=== PATIENT | female | born 1955 | race Caucasian/White ===

== ENCOUNTER 2017-03-06 19:03 | Emergency (ER) | payer BC ==
[~2017-03-06] VITALS: Ht 165.1 cm; Wt 70.0 kg
[2017-03-06 19:06] VITALS: BP 176/98; PULSE 79; RESP 16; TEMP 98.2; O2SAT 100
[2017-03-06 22:54] VITALS: BP 159/80; PULSE 63; RESP 16; O2SAT 99
[2017-03-06 23:03] VITALS: O2SAT 100
[2017-03-06] MEDS ORDERED: LISI-515 PO (23:04)
[2017-03-06] MEDS ORDERED: PLAV75TA29 PO (23:04)
[2017-03-06] MEDS ORDERED: ROSU1TAB10 PO (23:04)
[2017-03-06] MEDS ORDERED: COQ-100C2 (23:05)
[2017-03-06] MEDS ORDERED: METO25TA3 PO (23:05)
[2017-03-06] MEDS ORDERED: ASPI1TAB69 PO (23:05)
[2017-03-06] MEDS ORDERED: SODIUM CHLORIDE 0.9% FLUSH 10 ML FLUSH IVF PRN (23:15)
[2017-03-06 23:28] LABS: AUTOMATED NEUTROPHIL # 6.5 TH/MM3 (1.8-7.7); BASOPHIL # 0.1 TH/MM3 (0-0.2); BASOPHIL % 0.7 % (0.0-2.0); EOSINOPHIL # 0.2 TH/MM3 (0-0.4); EOSINOPHIL % 1.6 % (0.0-4.0); HEMATOCRIT 45.3 % (35.0-46.0); HEMO FLAGS DIFF FINAL; LYMPH % 21.6 % (9.0-44.0); MEAN CELL VOLUME 90.2 FL (80.0-100.0); MEAN CORPUSCULAR HEMOGLOBIN 31.1 PG (27.0-34.0); MEAN CORPUSCULAR HGB CONC 34.5 % (32.0-36.0); MONO % 6.1 % (0.0-8.0); PLATELET COUNT 246 TH/MM3 (150-450); RED BLOOD COUNT 5.02 MIL/MM3 (4.00-5.30); RED CELL DISTRIBUTION WIDTH 13.4 % (11.6-17.2); WHITE BLOOD COUNT 9.3 TH/MM3 (4.0-11.0)
[2017-03-06 23:55] LABS: APTT (PATIENT) 26.8 SEC (24.3-30.1); INTERNATIONAL NORMALIZED RATIO 0.9 RATIO
[2017-03-06 23:59] LABS: BICARBONATE 29.8 MEQ/L (21.0-32.0)
--- NOTE | 2017-03-07 00:44 | PD ---
HPI . Rectal bleeding Chief Complaint: GI Complaint Time Seen by Provider: 23:00 Travel History International Travel<30 days: No Contact w/Intl Traveler<30days: No Traveled to known affect area: No History of Present Illness HPI Patient presents following a set of rectal bleeding. She states that she developed some abdominal pain at approximately 6:30. She went to the bathroom to have a bowel movement and passed a large amount of blood. She states that her abdominal pain did not improve with the bowel movement. She states that the abdominal pain was so severe that she felt like she was going to pass out. However, the pain is now mild. She is not sure what may have made the pain better. She denies any previous similar history. Patient reports an FL in August. She now takes aspirin and Plavix. [facility] Past Medical History Cardiovascular Problems: Yes (FL - external zoll life vest in place ) High Cholesterol: Yes Hypertension: Yes Tetanus Vaccination: > 5 Years Influenza Vaccination: No ?: Not : 4 Para: 4 Social History Alcohol Use: No Tobacco Use: No Substance Use: No Allergies-Medications (Allergen,Severity, Reaction): Coded Allergies: No Known Allergies (Unverified , 03/06/17) Reported Meds & Prescriptions Reported Meds & Active Scripts Active Reported Coq-10 (Coenzyme Q10 (Ubidecarenone)) 100 Mg Cap Aspirin 81 Mg Tabdr 81 Mg PO DAILY Metoprolol Tartrate 25 Mg Tab 25 Mg PO DAILY Lisinopril 20 Mg Tab 20 Mg PO DAILY Plavix (Clopidogrel Bisulfate) 75 Mg Tab 75 Mg PO DAILY Rosuvastatin (Rosuvastatin Calcium) 40 Mg Tab 40 Mg PO DAILY Review of Systems Except as stated in HPI: all other systems reviewed are Neg General / Constitutional: No: Fever, Chills Gastrointestinal: Positive: Nausea, Abdominal Pain, Hematochezia, No: Vomiting , Diarrhea Physical Exam Narrative GENERAL: Awake and alert and in no acute distress. SKIN: Warm and dry. HEAD: Atraumatic. Normocephalic. EYES: Pupils equal and round. Extraocular movements intact. ENT: No nasal bleeding or discharge. Mucous membranes pink and moist. NECK: Trachea midline. Neck supple. CARDIOVASCULAR: Regular rate and rhythm. Heart sounds normal. RESPIRATORY: No accessory muscle use. Lungs clear with full air movement throughout. GASTROINTESTINAL: Abdomen soft, non-tender, nondistended. RECTAL: No visible or palpable hemorrhoid. Scant brown stool in the rectal vault which is Hemoccult negative. MUSCULOSKELETAL: No obvious deformities. No edema. NEUROLOGICAL: Awake and alert. No obvious cranial nerve deficits. Motor grossly within normal limits. Normal speech. PSYCHIATRIC: Appropriate mood and affect; insight and judgment normal. Data Data Last Documented VS Vital Signs Date Time Temp Pulse Resp B/P Pulse Ox O2 Delivery O2 Flow Rate FiO2 03/06/17 23:03 100 Room Air 03/06/17 22:54 63 16 159/80 03/06/17 19:06 98.2 Orders Basic Metabolic Panel (Bmp) (03/06/17 23:01) Complete Blood Count With Diff (03/06/17 23:01) Prothrombin Time / Inr (Pt) (03/06/17 23:) Act Partial Throm Time (Ptt) (03/06/17 23:01) Ecg Monitoring (03/06/17 23:01) Iv Access Insert/Monitor (03/06/17 23:01) Orthostatic Vital Signs (03/06/17 23:) Oximetry (03/06/17 23:01) Sodium Chloride 0.9% Flush (Ns Flush) (03/06/17 23:15) Ct Abd/Pel W Iv Contrast(Rout) (03/06/17 23:01) Iohexol 350 Inj (Omnipaque 350 Inj) (03/07/17 01:06) Labs Laboratory Tests Test 03/06/17 23:00 White Blood Count 9.3 TH/MM3 Red Blood Count 5.02 MIL/MM3 Hemoglobin 15.6 GM/DL Hematocrit 45.3 % Mean Corpuscular Volume 90.2 FL Mean Corpuscular Hemoglobin 31.1 PG Mean Corpuscular Hemoglobin 34.5 % Concent Red Cell Distribution Width 13.4 % Platelet Count 246 TH/MM3 Mean Platelet Volume 8.2 FL Neutrophils (%) (Auto) 70.0 % Lymphocytes (%) (Auto) 21.6 % Monocytes (%) (Auto) 6.1 % Eosinophils (%) (Auto) 1.6 % Basophils (%) (Auto) 0.7 % Neutrophils # (Auto) 6.5 TH/MM3 Lymphocytes # (Auto) 2.0 TH/MM3 Monocytes # (Auto) 0.6 TH/MM3 Eosinophils # (Auto) 0.2 TH/MM3 Basophils # (Auto) 0.1 TH/MM3 CBC Comment DIFF FINAL Differential Comment Prothrombin Time 10.0 SEC Prothromb Time International 0.9 RATIO Ratio Activated Partial 26.8 SEC Thromboplast Time Sodium Level 143 MEQ/L Potassium Level 4.0 MEQ/L Chloride Level 107 MEQ/L Carbon Dioxide Level 29.8 MEQ/L Anion Gap 6 MEQ/L Blood Urea Nitrogen 16 MG/DL Creatinine 1.10 MG/DL Estimat Glomerular Filtration 50 ML/MIN Rate Random Glucose 90 MG/DL Calcium Level 9.4 MG/DL [facility] Medical Decision Making Medical Screen Exam Complete: Yes Emergency Medical Condition: Yes Interpretation(s) EKG shows a sinus rhythm. She has diffuse anterior T-wave abnormality but no ST segment elevation or depression. She has had a previous FL. I have no old EKGs for comparison. Differential Diagnosis Differential diagnosis includes but is not limited to hemorrhoid, diverticulitis , cancer, coagulopathy Narrative Course Patient presents complaining of rectal bleeding which was preceded by abdominal pain. She has a benign exam. CBC & BMP Diagram 03/06/17 23:00 [facility] Point of Care Internal Pos. & Neg. Controls: Passed Fecal Specimen Occult Blood: Negative Diagnosis Primary Impression: Rectal bleeding Additional Impression: Abdominal pain Qualified Code: R10.84 - Generalized abdominal pain Disposition: DISCHARGE HOME Condition: Stable Veronica Devi MD Mar 07, 2017 00:44
[2017-03-07 01:00] VITALS: BP 159/80; PULSE 63; RESP 16; O2SAT 99
[2017-03-07] MEDS ORDERED: IOHEXOL 350 MG/ML 10 ML VIAL (for RAD DIAG) IV ONE (01:06)
--- NOTE | 2017-03-07 01:21 | RADRPT ---
EXAM DATE/TIME: 03/07/2017 01:04 [place] COMPARISON: No previous studies available for comparison. INDICATIONS : Blood in stool. IV CONTRAST: 75 cc Omnipaque 350 (iohexol) IV ORAL CONTRAST: No oral contrast ingested. RADIATION DOSE: 14.75 CTDIvol (mGy) MEDICAL HISTORY : Myocardial infarction. Hypertension. SURGICAL HISTORY : None. cardiac stents ENCOUNTER: Initial ACUITY: 1 day PAIN SCALE: 3/10 LOCATION: abdomen TECHNIQUE: Volumetric scanning of the abdomen and pelvis was performed. Using automated exposure control and ad justment of the mA and/or kV according to patient size, radiation dose was kept as low as reasonably achievable to obtain optimal diagnostic quality images. FINDINGS: LOWER LUNGS: The visualized lower lungs are clear. LIVER: Homogeneous density without lesion. There is no dilation of the biliary tree. No calcified gallston es. SPLEEN: Normal size without lesion. PANCREAS: Within normal limits. KIDNEYS: Normal in size and shape. There is no mass, stone or hydronephrosis. ADRENAL GLANDS: Within normal limits. VASCULAR: There is no aortic aneurysm. BOWEL/MESENTERY: The stomach, small bowel, and colon demonstrate no acute abnormality. There is no free intraperitone al air or fluid. ABDOMINAL WALL: Within normal limits. RETROPERITONEUM: There is no lymphadenopathy. BLADDER: No wall thickening or mass. Miniscule amount of air within the bladder REPRODUCTIVE: Within normal limits. INGUINAL: There is no lymphadenopathy or hernia. MUSCULOSKELETAL: Within normal limits for patient age. CONCLUSION: Normal examination except for minimal air within the bladder could be related to recent catheterizati on. I don't see a significant evidence of a colovesicular fistula or colonic inflammation. Gentry Alford MD on March 07, 2017 at 1:18 Board Certified Radiologist. This report was verified electronically.
--- NOTE | 2017-03-07 14:51 | EKG ---
Date Performed: 03/06/2017 Time Performed: 23:08:23 PTAGE: 61 years EKG: Sinus rhythm Marked nonspecific T-wave changes ABNORMAL ECG NO PREVIOUS TRACING DOCTOR: Thor Castro Interpretating Date/Time 03/07/2017 14:49:37
== END 2017-03-07 02:34 | disposition home or self-care (01) ==
LOC: NEPC 19:03
DX: K62.5 Hemorrhage of anus and rectum (principal); R10.9 Unspecified abdominal pain; I25.2 Old myocardial infarction; I10 Essential (primary) hypertension; E78.00 Pure hypercholesterolemia, unspecified; Z79.01 Long term (current) use of anticoagulants
CPT/HCPCS: 74177; 80048; 85025; 85610; 85730; 93005; 99284; Q9967